=== PATIENT | female | born 1990 | race African-American/Black ===

== ENCOUNTER → 2017-02-23 06:18 | Outpatient (CLI) | payer MEDICAID ==
[2017-02-23 07:37] LABS: UDS - AMPHET NEGATIVE QUAL (NEGATIVE); UDS - BARB NEGATIVE QUAL (NEGATIVE); UDS - BENZO NEGATIVE QUAL (NEGATIVE); UDS - COCAINE NEGATIVE QUAL (NEGATIVE); UDS - METH NEGATIVE QUAL (NEGATIVE); UDS - OPIATE NEGATIVE QUAL (NEGATIVE); UDS - PCP NEGATIVE QUAL (NEGATIVE); UDS - THC NEGATIVE QUAL (NEGATIVE)
[2017-02-23 07:48] LABS: APPEARANCE CLOUDY (CLEAR); BACTERIA FEW /hpf (NONE SEEN); BILIRUBIN NEGATIVE (NEGATIVE); COLOR PINK (YELLOW); GLUCOSE NEGATIVE (NEGATIVE); KETONE NEGATIVE (NEGATIVE); LEUKOCYTE ESTERASE 2+ (NEGATIVE); NITRITE NEGATIVE (NEGATIVE); PROTEIN NEGATIVE (NEGATIVE); RED CELLS - URINE >50 /hpf (0-5); UROBILINOGEN NORMAL (NORMAL)
[2017-02-23 07:49] LABS: MUCUS <1+ /lpf (NONE SEEN)
== END | disposition home or self-care (01) ==
LOC: D.LDO 06:18
PROVIDERS: Obstetrics & Gynecology
DX: O46.93 Antepartum hemorrhage, unspecified, third trimester (principal); Z3A.29 29 weeks gestation of pregnancy; O36.8130 Decreased fetal movements, third trimester, not applicable or unspecified

== ENCOUNTER 2017-05-04 04:00 | Inpatient (IN) | payer MEDICAID ==
[2017-05-04] MEDS ORDERED: VENTOLIN HFA18 GM INH (04:18)
[2017-05-04] MEDS ORDERED: PRENATAL COMPLE1 TAB PO (04:25)
[2017-05-04 04:36] VITALS: BP 132/88; BMI 34.6
[2017-05-04 06:23] LABS: HEMATOCRIT 32.7 % (36.0-48.0); MCH 32.6 pg (26.0-34.0); MCHC 33.6 g/dL (31.0-37.0); MEAN PLATELET VOLUME 11.7 fL (7.4-10.4); RBC 3.37 10x6/uL (4.00-5.40); RDW 12.7 % (11.5-14.5); WBC 10.2 10x3/uL (4.8-10.8)
[2017-05-04 06:38] LABS: APPEARANCE CLOUDY (CLEAR); BILIRUBIN NEGATIVE (NEGATIVE); COLOR DK YELLOW (YELLOW); GLUCOSE NEGATIVE (NEGATIVE); KETONE NEGATIVE (NEGATIVE); NITRITE NEGATIVE (NEGATIVE); PROTEIN NEGATIVE (NEGATIVE)
[2017-05-04 06:40] LABS: WHITE CELLS - URINE >50 /hpf (0-5)
[2017-05-04 06:41] LABS: BACTERIA MODERATE /hpf (NONE SEEN); MUCUS <1+ /lpf (NONE SEEN)
--- NOTE | 2017-05-04 13:30 | NUR ---
[place] to room, call light/phone and tv remote. pt complains of cramping that she rates at 4/10 and is agreeable to ibuprofen.
--- NOTE | 2017-05-04 13:48 | NUR ---
Motrin given as charted on emar. Sig Other at bedside and he is shown where nursery entrance is. Pt denies any other needs at this time.
--- NOTE | 2017-05-04 14:30 | NUR ---
Pt visiting with friends/family at bedside. No needs at this time.
--- NOTE | 2017-05-04 16:01 | NUR ---
Pt sitting up in bed, rates pain at 1/10. States that she has been to bathroom once but didn't remember to call for nurse, denies any burning with void. States understanding to call so that adia care instructions can be gone over with her. Family and friends at bedside with in room. Pt denies any needs, side rails up x 2 with phone and call light in reach.
[2017-05-04 19:54] VITALS: BP 133/95
--- NOTE | 2017-05-04 19:54 | NUR ---
AWAKE DURINGT INITIAL ROUNDS. INTRODUCED SELF. V/S TAKEN. ASSESSMENT DONE. STATUS POST WITH MIDLINE EPISIOTOMY TODAY. . SALINE LOCK TO R FA INTACT. LOCHIA RUBRA MODERATE, VOIDING WELL PER PATIENT.
--- NOTE | 2017-05-04 20:00 | NUR ---
PAIN LEVEL "8"/10 FROM PERINEUM. MOTRIN 600mg 1tab PO GIVEN FOR PAIN CONTROL. EPIFOAM, DERMOPLAST, TUCKS GIVEN WITH INSTRUCTIONS ON HOW TO USE. MILK OF MAG GIVEN ORDERED AT HS. SEE E-MAR.
--- NOTE | 2017-05-04 21:37 | NUR ---
COMPLAINED OF UTERINE CRAMPING. TYLENOL #3 1tab GIVEN FOR PAIN CONTROL. BABY TO THE NURSERY IN OPEN CRIB.
--- NOTE | 2017-05-04 21:38 | NUR ---
SITZ BATH KIT GIVEN WITH INSTRUCTIONS ON HOW TO USE. VERBALIZED UNDERSTANDING.
--- NOTE | 2017-05-04 21:53 | NUR ---
AMBULATING IN THE NU[facility] WITH FOB.
--- NOTE | 2017-05-04 23:30 | NUR ---
EYES CLOSED. LEFT UNDISTURBED.
[2017-05-05 02:33] VITALS: BP 127/82
--- NOTE | 2017-05-05 02:33 | NUR ---
CALL LIGHT ANSWERED. PAIN LEVEL 8/10 FROM UTERINE CRAMPING. MOTRIN 600mg 1tab / TYLENOL #3 1tab PO GIVEN FOR PAIN CONTROL. V/S STABLE. BABY HERE FOR FEEDINGS. FOB IN THE ROOM.
--- NOTE | 2017-05-05 03:00 | NUR ---
BABY HERE FOR FEEDINGS. BONDING WELL. FOB IN THE ROOM.
--- NOTE | 2017-05-05 04:10 | NUR ---
BABY BACK TO THE NURSERY IN OPEN CRIB.
--- NOTE | 2017-05-05 05:25 | NUR ---
ALARM SECURITY OR SURVEILLANCE MONITOR HERE TO DRAW AM LAB. SLEPT FAIRLY DURING THE NIGHT. CONTINUING PLAN OF CARE. FOB IN THE ROOM.
[2017-05-05 05:41] LABS: HEMATOCRIT 28.3 % (36.0-48.0); HEMOGLOBIN 9.6 g/dL (12-16); MCH 32.5 pg (26.0-34.0); MCHC 33.9 g/dL (31.0-37.0); MCV 95.9 fL (80.0-100.0); MEAN PLATELET VOLUME 11.1 fL (7.4-10.4); RBC 2.95 10x6/uL (4.00-5.40); RDW 12.7 % (11.5-14.5); WBC 11.5 10x3/uL (4.8-10.8)
--- NOTE | 2017-05-05 06:57 | NUR ---
REPORT GIVEN TO AM SHIFT NURSES.
--- NOTE | 2017-05-05 07:21 | OP ---
PATIENT NAME: YANETH PÉREZ MEDICAL RECORD: [id number] LOCATION:[id number] ADMISSION DATE:05/04/17 SURGEON: TOPHER DE JESUS MD DATE OF OPERATION: 05/04/2017 Delivery Note Spontaneous vaginal delivery of female infant weighing 7 pounds and 9 ounces, 9 and 9 Apgars, epidural anesthesia. Second-degree midline episiotomy repaired using 2-0 chromic suture. Spontaneous delivery of intact-appearing placenta. ESTIMATED BLOOD LOSS: 400 cc. COMPLICATIONS OF DELIVERY: None. TRANSINT:[id number] Voice Confirmation ID: [id number] DOCUMENT ID: [id number] TOPHER DE JESUS MD at 0721 CC: [id number] DICTATION DATE: 05/04/17 1034 FRONT DESK ADMIN: 05/04/17 1204 ADM IN [facility] [address] [place] [address]
[2017-05-05 07:28] LABS: RAPID PLASMA REAGIN Non Reactive (Non Reactive)
[2017-05-05 07:36] VITALS: BP 119/81
--- NOTE | 2017-05-05 07:36 | NUR ---
RECEIVED PT LYING TO RIGHT SIDE IN BED. AWAKE. AAO X 3. VSS. HRRR WITHOUT AUDIBLE MURMUR. BOTH UPPER LOBES WITH EXPIRATORY WHEEZES NOTED. PT STATES HAS ASTHMA AND USES INHALER DAILY. STATES HAS NOT USED INHALER TODAY. BS X 4. ABDOMEN SOFT/NON-DISTENDED. FUNDUS FIRM AT U/U. RUBRA LOCHIA SMALL AMT. NO CLOTS NOTED ON PERIPAD. PERINEUM WITHOUT EDEMA NOTED. NEG HOMANS' SIGN. PPP. NO EDEMA NOTED TO BLE. PT C/O PAIN TO PERINEUM OF "8" ON 0-10 PAIN SCALE. TYLENOL #3 2 TABS GIVEN PO ORDERED. PT INSTRUCTED ON MED. VERBALIZES UNDERSTANDING. SR UPX2. CALL LIGHT IN REACH. PT TALKING ON PHONE DURING ENTIRE ASSESSMENT.
--- NOTE | 2017-05-05 07:50 | NUR ---
DR DE JESUS VISITS WITH PT.
--- NOTE | 2017-05-05 08:16 | NUR ---
PT SITTING UP IN BED. TALKING ON PHONE. STATES PAIN NOW "5" ON 0-10 PAIN SCALE. DENIES NEEDS OR C/O.
[2017-05-05] MEDS ORDERED: IBUPROFEN600 MG PO (08:29)
--- NOTE | 2017-05-05 09:00 | NUR ---
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 REQUESTS AND RECEIVES CUP OF ICE.
--- NOTE | 2017-05-05 10:00 | NUR ---
PT LYING TO RIGHT SIDE IN BED. EYES CLOSED. RESP NON-LABORED. PT NOT DISTURBED TO ALLOW FOR REST.
--- NOTE | 2017-05-05 12:00 | NUR ---
PT SITTING UP IN BED. VISITS WITH FAMILY IN ROOM AND CONSUMING REG DIET. DENIES C/O OR NEEDS.
--- NOTE | 2017-05-05 13:04 | NUR ---
PT C/O PAIN OF "7" ON 0-10 PAIN SCALE. PT STATES PAIN TO PERINEUM. PT GIVEN TYLENOL #3 1 TAB AND IBUPROFEN 600 MG AT PT REQUEST. PT INSTRUCTED ON MEDS. VERBALIZES UNDERSTANDING.
--- NOTE | 2017-05-05 13:50 | NUR ---
PT SITTING UP IN BED. VISITS WITH FAMILY. DENIES NEEDS OR C/O.
--- NOTE | 2017-05-05 14:51 | NUR ---
PT SITTING UP IN BED. TALKING ON PHONE. STATES NO C/O OR NEEDS.
--- NOTE | 2017-05-05 17:06 | NUR ---
PT CALLS PROJECT/PRODUCTION MANAGER IMAGING LIGHT. STATES C/O BACK PAIN OF "10" ON 0-10 PAIN SCALE. TYLENOL #3 2 TABS GIVEN PO ORDERED. PT INSTRUCTED ON MED. VERBALIZES UNDERSTANDING.
--- NOTE | 2017-05-05 18:00 | NUR ---
PT SITTING UP IN BED. FEEDING INFANT. DENIES NEEDS OR C/O.
--- NOTE | 2017-05-05 19:13 | NUR ---
RN TO BEDSIDE TO REVIEW D/C PAPERWORK WITH PT. PT OUT OF ROOM AT THIS TIME. S/O REPORTS THAT PT WENT TO NBN AND WILL BE BACK SOON. INSTRUCTED TO NOTIFY RN WHEN PT BACK TO ROOM. VERBALIZES UNDERSTANDING.
--- NOTE | 2017-05-05 19:38 | NUR ---
PT CALLS VIA CL REPORTING SHE IS BACK TO ROOM. RN TO BEDSIDE. D/C INSTRUCTIONS REVIEWED WITH PT AND S/O, DENY QUESTIONS AT THIS TIME. TDAP GIVEN TO RIGHT DELTOID, TOLERATED WELL. S/O PUTTING CARSEAT TOGETHER AT THIS TIME. PT INSTRUCTED TO NOTIFY RN WHEN SHE AND WERE READY FOR D/C. VERBALIZES UNDERSTANDING.
--- NOTE | 2017-05-05 20:03 | NUR ---
PT CALLS VIA CL. REQUESTS HELP PUTTING TOGETHER AND ADJUSTING CARSEAT. RN PROVIDED VERBAL INSTRUCTIONS AND ALSO PROVIDED THEM WITH INFORMATION TO CONTACT HARIKA Marquez FOR INSPECTION OF CARSEAT TO ASSURE IT IS INSTALLED PROPERLY IN THE CAR ALSO, VERBALIZES UNDERSTANDING AND APPRECIATION.
--- NOTE | 2017-05-05 20:29 | NUR ---
PT OFF UNIT IN W/C HOLDING IN CARSEAT WITH RN IN STABLE CONDITION.
== END 2017-05-05 20:29 | disposition home or self-care (01) | DRG 775 ==
LOC: D.LD 04:00
PROVIDERS: ADMIT Obstetrics & Gynecology
PROC: 10E0XZZ Delivery of Products of Conception, External Approach (ICD-10-PCS; principal; 2017-05-04)
PROC: 10907ZC Drainage of Amniotic Fluid, Therapeutic from Products of Conception, Via Natural or Artificial Opening (ICD-10-PCS; 2017-05-04)
PROC: 0W8NXZZ Division of Female Perineum, External Approach (ICD-10-PCS; 2017-05-04)
DX: O80 Encounter for full-term uncomplicated delivery (principal); Z3A.39 39 weeks gestation of pregnancy; Z37.0 Single live birth